=== PATIENT | female | born 1950 ===

== ENCOUNTER 2022-02-06 05:55 | Day surgery (SDC) | payer OTHER ==
[~2022-02-06 05:55] MED LIST: LOSARTAN-HCTZ1 EAC1 PO; SERT PO; SIMVAST PO; SYNTHROID75 MCG PO; [UNRECOGNIZED DRUG - CODE]
[2022-02-06] MEDS ORDERED: ULTRACET PO (11:25)
[2022-02-06] MEDS ORDERED: MACROBID 100 M100 MG PO (11:25)
== END 2022-02-06 15:10 | disposition home or self-care (01) ==
LOC: CIR.AMB 05:55
PROVIDERS: ATTEND Obstetrics & Gynecology Gynecology
DX: N72 Inflammatory disease of cervix uteri (principal); Z20.822 Contact with and (suspected) exposure to COVID-19; N81.11 Cystocele, midline; N81.82 Incompetence or weakening of pubocervical tissue; N81.83 Incompetence or weakening of rectovaginal tissue; N81.6 Rectocele; I10 Essential (primary) hypertension; E11.9 Type 2 diabetes mellitus without complications; E03.9 Hypothyroidism, unspecified; K21.9 Gastro-esophageal reflux disease without esophagitis